=== PATIENT | female | born 1960 | race African-American/Black ===

== ENCOUNTER 2018-02-23 03:59 | Inpatient (IN) ==
[2018-02-25 08:09] VITALS: BP 116/77
== END 2018-02-25 14:21 | disposition home or self-care (01) | DRG 203 ==
LOC: N.EDINP 03:59 → N.ED 03:59 → SUATTDRO 06:16 → N.TELES 06:31
PROVIDERS: ADMIT Internal Medicine; ATTEND Internal Medicine Infectious Disease